=== PATIENT | male | born 1985 ===

== ENCOUNTER 2023-06-12 08:59 | Outpatient (AMB) | payer OTHER, SELFPAY ==
[2023-06-12 09:03] VITALS: BP 130/84; PULSE 83; RESP 12; TEMP 36.3; O2SAT 99; BMI 38.2
--- NOTE | 2023-06-12 09:03 | A.OFFPC_ITS ---
Vital Signs 06/12/23 09:03 Height 5 ft 11 in Weight 274 lb 4 oz BMI 38.2 BP 130/84 Blood Pressure Location Rt brachial Position Sitting Respiration 12 Pulse 83 Pulse Source Pulse Oximeter Temp 97.4 F Temp Source Temporal Artery Scan Pulse Oximetry (%) 99 Oxygen Delivery Method Room Air Intake Visit Reasons: NPV- requesting phy Intake Note: Patient states he is having pain in his left knee that has been going on for more than a year. Patient states that nothing happened to cause the pain. Patient would like a referral for a Dermatology due to whit spots on skin as well as moles. 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 He notes he is not on prescription medications. He reports pain to his left knee only with walking for the past 1 year and a half. He states the pain is persistent with walking. He reports associated intermittent numbness to the left anterior thigh. 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 He notes he hes not take any pain medication. He reports gaining 70 lb in the past year and a half. He states that he generally eats healthy. He requests Dermatology referral for white spots to his neck and moles on his head. He states he was prescribed clotrimazole in the past which treated the white spots. 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 1. Little interest or pleasure in doing things: not at all 2. Feeling down, depressed, or hopeless: not at all 3. Trouble falling or staying asleep, or sleeping too much: not at all 4. Feeling tired or having little energy: not at all 5. Poor appetite or overeating: not at all 6. Feeling bad about yourself - or that you are a failure or have let yourself or your family down: not at all 7. Trouble concentrating on things, such as reading the newspaper or watching television: not at all 8. Moving or speaking so slowly that other people could have noticed. Or the opposite - being so fidgety or restless that you have been moving around a lot more than usual: not at all 9. Thoughts that you would be better off or of hurting yourself in some way: not at all Total score: 0 Depression Screening Interpretation: Negative Source: Developed by Drs. Yonny Coles, Sharee Evans, Fabian Blackwell and colleagues, with an educational maria isabel from [employer]. Thrive Questionnaire Date Thrive assessed: 06/12/23 I am a: Patient What is your living situation today?: I have a steady place to live Within the past 12 months, did the food you bought not last and you didn't have the money to get more?: Never true Within the past 12 months, did you worry whether your food would run out before you got money to buy more?: Never true Do you have trouble paying for medicines?: No Do you have trouble getting transportation to medical appointments?: No Do you have trouble paying your heating and electricity bill?: No Do you have trouble taking care of your child, family member or friend?: No Do you have trouble with day-to-day activities such as bathing, preparing meals, shopping, managing finances, etc.?: No Are you currently unemployed and looking for a job?: No Are you interested in more education?: No Please select the resources that you would like help with: None Currently or been in a relationship where the following occur: no concerns reported AUDIT C Alcohol Use Questionnaire (AUDIT-C) 1. How often do you have a drink containing alcohol?: Never 3. How often do you have six or more drinks on one occasion?: Never Total Score: 0 ELIN-7 AMB Questionnaire ELIN-7 Date ELIN - 7 assessed: 06/12/23 Feeling nervous, anxious, or on edge: 0 = Not at all Not being able to stop or control worryin = Not at all Worrying too much about different things: 0 = Not at all Trouble relaxin = Not at all Being so restless that it is hard to sit still: 0 = Not at all Becoming easily annoyed or irritable: 0 = Not at all Feeling afraid as if something awful might happen: 0 = Not at all Total ELIN-7 score (0-4 normal; 5-9 mild; 10-14 moderate; 15-21 severe): 0 Source: Developed by Drs. Yonny Coles, Sharee Evans, Fabian Blackwell and colleagues, with an educational maria isabel from [employer]. Review of Systems Const Details: Const Denies chills, Denies fatigue, Denies fever(s), Denies headache(s) and Denies weakness ENT Denies dizziness and Denies headache(s) Card Denies chest pain, Denies lightheadedness, Denies dyspnea and Denies other (Palpitations) Resp Denies cough, Denies dyspnea, Denies wheezing and Denies other ( shortness of breath) GI Denies abdominal pain, Denies melena, Denies hematochezia, Denies change in bowel habits, Denies dyspepsia and Denies nausea Denies hematuria and Denies dysuria Musc Reports as per HPI Skin/Breast Reports as per HPI Neuro Denies abnormal gait, Denies dizziness, Denies headache(s), Denies memory loss, Denies numbness, Denies Sensory deficit (Neuro), Denies tingling and Denies weakness Psych Denies anxiety, Denies depression, Denies memory loss Endo Denies cold intolerance, Denies fatigue, Denies heat intolerance, Denies polydipsia and Denies polyuria Aller/Immun Denies wheezing Physical exam (Primary Care) Vital Signs: Last Vital Signs Temp 97.4 F 06/12/23 09:03 Pulse 83 06/12/23 09:03 Resp 12 06/12/23 09:03 BP 130/84 06/12/23 09:03 Pulse Ox 99 06/12/23 09:03 Oxygen Delivery Method Room Air 06/12/23 09:03 BMI result Body Mass Index 38.2 Tobacco/Smoking Status: Tobacco use Status Tobacco use date assessed 06/12/23 06/12/23 09:16 Patient Tobacco Use Status Never used Tobacco 06/12/23 09:16 e-Cigarette/Vaping Use Never Used 06/12/23 09:16 PHQ-9: PHQ-9 Score PHQ-9: Total score 0 06/12/23 09:43 Depression Screening Interpretation: Negative Thrive Assessment: Date of Thrive Assessment Date Thrive assessed 06/12/23 06/12/23 09:16 Currently or been in a relationship where the following occur: no concerns repo rted Const Other: General: no acute distress and well developed Nutritional Appearance: well nourished Orientation/consciousness: patient oriented x3 HENMT Head: Yes normocephalic and Yes atraumatic Eyes General: appearance normal, both eyes and all related structures Pupils: Equal, round and reactive pupils present EOM: EOMs intact bilaterally Resp Effort & Inspection: normal respiratory effort Auscultation: clear to auscultation bilaterally Cardio Rate: regular rate Rhythm: regular rhythm Heart sounds: S1 normal heart sound present, S2 normal heart sound present, no gallops, no murmurs and no rubs GI Palpation (GI): No Abdominal aortic bruit present, Soft to palpation, nontender, No hepatosplenomegaly present and No Rebound tenderness present Auscultation: normal bowel sounds General: Yes no CVA tenderness Back/Spine/Pelvis Back: no CVA tenderness Cervical Spine: cervical ROM normal and No Cervical spine tenderness Thoracic/Lumbar Spine: thoraco-lumbar ROM normal, No pain with thoraco-lumbar ROM, No thoracic spinal tenderness and No lumbar spinal tenderness Extrem General: Yes normal to inspection, No edema and No calf tenderness Tenderness to medial and posterior left knee with active ROM, no erythema, edema, or overt trauma or injury Skin General: warm and dry. Normal skin color. Normal skin turgor Lesions: Few moles to the scalp Rashes: Hypopigmentation of the skin on the posterior neck and upper back, consistent with tinea versicolor Trauma: no lacerations or abrasions Wounds: no wounds Nails: normal Neuro General: patient oriented x3, gait normal and no focal neuro deficit Cranial nerves: Yes Equal, round and reactive pupils present Cognition (Neuro): normal cognition Gait exam (Neuro): Normal gait present Sensory Exam: No Sensory deficit (Neuro) Psych Appearance: grossly normal Affect: normal affect Attitude: cooperative Thought process: Normal thought process present Assessment and Plan Assessment & Plan (1) Chronic pain of left knee: Code(s): M25.562 - Pain in left knee; G89.29 - Other chronic pain Plan: Tenderness to medial and posterior left knee with active ROM, no erythema, edema, or overt trauma or injury X-ray ordered Naproxen ordered. Take as prescribed Warm/cool compresses encouraged Weight may be a contributing factor Weight management, including exercise and healthy diet choices encouraged Referred to weapons officer/dietitian Return with worsening or new symptoms Verbalized understanding and agreed with treatment plan. (2) Obesity (BMI 30-39.9): Code(s): E66.9 - Obesity, unspecified Plan: Reports gaining 70 lb in the past year and a half He weighs 274 lb, BMI is 38.2 Healthy diet and routine exercise encouraged Referred to weapons officer/dietitian Informed that his current weight may be a contributing factor to his left knee pain Verbalized understanding and agreed with treatment plan. (3) Tinea versicolor: Code(s): B36.0 - Pityriasis versicolor Plan: Hypopigmentation of the skin on the posterior neck and upper back, consistent with tinea versicolor Terbinafine cream as prescribed Referred to dermatology Follow-up with worsening or new signs and symptoms Verbalized understanding and agreed with treatment plan. (4) Numerous moles: Code(s): D22.9 - Melanocytic nevi, unspecified Plan: Few moles to the scalp Referred to dermatology for evaluation (5) Impacted cerumen of both ears: Code(s): H61.23 - Impacted cerumen, bilateral Plan: Impacted cerumen of both ear canal occluding the TMs May return for cerumen removal with ear pain or impaired hearing Verbalized understanding and agreed with the plan. (6) Laboratory tests ordered as part of a complete physical exam (CPE): Code(s): Z00.00 - Encounter for general adult medical examination without abnormal findings Plan: Fasting labs ordered as part of a complete physical exam. Advised to fast for at least 10 hours before getting labs drawn. May drink water Verbalized understanding and agreed with treatment plan. Orders: Orders Complete Blood Count Auto Diff Today Z00.00 - Encounter for general adult medical examination without abnormal findings Comprehensive [place]. Panel Fast Today Z00.00 - Encounter for general adult medical examination without abnormal findings TSH reflex Free T4 Today Z00.00 - Encounter for general adult medical examination without abnormal findings UA CC w/rflx Micro + Cult Today Z00.00 - Encounter for general adult medical examination without abnormal findings XR knee LT 2V Today G89.29 - Other chronic pain, M25.562 - Pain in left knee Lipid Panel Today Z00.00 - Encounter for general adult medical examination without abnormal findings Referrals Program Schedule Clerk Nutrition Referral E66.9 - Obesity, unspecified Dermatology Referral B36.0 - Pityriasis versicolor, D22.9 - Melanocytic nevi, unspecified Medications: New terbinafine HCl 1% 1 appl topical BID 15 grams 0RF 7 days naproxen 500 mg PO BID PRN 60 tabs 1RF pain Coding Level of Care Code New Pt Level 3 (34025) Diagnoses Chronic pain of left knee M25.562; G89.29 Obesity (BMI 30-39.9) E66.9 Tinea versicolor B36.0 Numerous moles D22.9 Impacted cerumen of both ears H61.23 Laboratory tests ordered as part of a complete physical exam (CPE) Z00.00
== END 2023-06-12 09:53 | disposition home or self-care (01) ==
PROVIDERS: PCP Hospitalist; Visit Provider Nurse Practitioner Family
DX: M25.562 Pain in left knee (principal); E66.9 Obesity, unspecified; B36.0 Pityriasis versicolor; Z68.38 Body mass index [BMI] 38.0-38.9, adult; D22.9 Melanocytic nevi, unspecified; H61.23 Impacted cerumen, bilateral
CPT/HCPCS: 99203

== ENCOUNTER 2023-06-21 08:18 | Outpatient (AMB) | payer OTHER, SELFPAY ==
--- NOTE | 2023-06-21 08:27 | A.OFFVIS_ITS ---
Intake VS Expanded 06/21/23 08:29 06/26/23 12:20 Height 5 ft 11 in 5 ft 11 in Weight 272 lb 14.916 oz 273 lb BMI 38.1 38.1 Intake Visit Reasons: Obesity, confirm Allergies No Known Allergies Allergy (Verified 06/12/23 09:30) HPI Nutrition Presentation Details Pt presents for MNT for obesity. The Pt was referred by Rosa Elena Azevedo. Pt reports typical wt 280 lbs PT reports in 2019 he reached 190 lbs ( via exercise and strict diet) beverages : coke (pepsi/coke) 8-9 pm B: Gas station bagel/cheese, cok e or te , lots of coffee and milk no sugar /2 , 1/2 Pt reports eating from 8-12 pm , and nothing else the rest of the day Reports eating chocolates exercise: currently not participating ETOH occ smoking denies PTM-Cxzzuvi-Qv.Jeor Equation Height 5 ft 11 in Weight 273 lb Resting Metabolic Rate 2182.23 Calculated Activity Level Sedentary Calories Needed to Maintain Weight 2618.68 Diagnosis Nutrition problem #1 excessive energy intake As related to (etiology) #1 diagnosis As evidenced by (sign/symptom) #1 high BMI (38.1 (06/26/23)) Monitoring/Goals Nutrition problem monitoring total PRO intake, total CHO intake, weight and oral fluids Learning/Education Readiness to learn fair Stages of change contemplation Educational materials provided Yes (meal planning) Most Recent Diabetes Results: No Data to Display [facility] Medical History (Updated 06/12/23 @ 10:02 by Alyx Hernandez CNP) No pertinent family history No pertinent past medical history Surgical History (Updated 06/12/23 @ 09:14 by Brittney Bingham MA) No pertinent past surgical history Social History Housing: House Patient Tobacco Use Status: Never used Tobacco e-Cigarette/Vaping Use: Never Used service: No Current occupational status: employed 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 Cognitive needs: No Hearing needs: No Vision needs: No Assessment & Plan Assessment & Plan (1) Obesity (BMI 30-39.9): Code(s): E66.9 - Obesity, unspecified Plan: wt: 124 kg Est kcal needs as per MSJ: 2600 (40% carb, 30% protein/fat) Est fluid needs as per 30 ml/d: 3700 Est prot per day as per 1 g/kg bw: 124 Recommend fiber intake : 8-10 g per day and gradually increase to 25-28 g per day for women and 35-38 g for men or as tolerated Recommend sodium intake per day : less than 2000 mg Educated patient on: ( R = reviewed V = verbalizes understanding N/R = needs review N/A = not applicable * Food sources of carbohydrate, adequate serving sizes and its role in various health conditions: R * Differences between complex carbohydrates a simple carbohydrates, role of fiber in diet: R * Differences between types of fats and role in diet (mono on saturated fat fatty acids, saturated fatty acids, trans fats): R basic * Food sources of sodium in salt and healthy modifications for heart health in kidney health: R * REading food labels: R * Healthy plate method concept: R V * Physical activity: Benefits a precaution: R * Patient Instructions: Work on gradual weight loss , work on reducing 500 calories per day from empty calorie foods : example : have af fruit (60 kira) vs pastries (100+ per serving) , reduce on portion sizes of empty calorie foods, choose lower fat food options Practice mindful eating see meal ideas printed as reference Coding Level of Care Code Nutr Indiv Intake (07330) Diagnoses Obesity (BMI 30-39.9) E66.9 Time Spent (min) 30
[2023-06-21 08:29] VITALS: BMI 38.1
[2023-06-26 12:20] VITALS: BMI 38.1
== END 2023-06-21 09:25 | disposition home or self-care (01) ==
PROVIDERS: PCP Hospitalist; Visit Provider Dietitian, Registered
DX: E66.9 Obesity, unspecified (principal)

== ENCOUNTER → 2023-06-21 08:18 | Outpatient (BNVA) | payer OTHER, SELFPAY | PROVIDERS: PCP Hospitalist; Visit Provider Dietitian, Registered | DX: E66.9 Obesity, unspecified (principal); Z68.38 Body mass index [BMI] 38.0-38.9, adult | CPT/HCPCS: 97802 ==

== ENCOUNTER 2023-07-05 08:15 | Outpatient (REF) | payer OTHER, SELFPAY ==
[2023-07-05 11:13] LABS: MANUAL DIFF FLAG NO
[2023-07-05 11:24] LABS: Appearance Urine Turbid; Color Urine Yellow; Glucose Urine UA Negative (Negative); Leukocyte Esterase Urine Negative (Negative); Nitrite Urine Negative (Negative); PH 5.5 (5.0-9.0); Specific Gravity - Urine 1.025 (1.005-1.025); Urine Blood Negative (Negative); Urine Ketones Negative (Negative); Urine Protein Negative (Neg-Trace)
[2023-07-05 11:31] LABS: Basophils Absolute Auto 0.1 X10*3/uL (0.0-0.2); Basophils Percent Auto 0.7 % (0-2); Eosinophils Absolute Auto 0.1 X10*3/uL (0.0-0.4); Hematocrit 43.8 % (42.0-52.0); Hemoglobin 14.8 g/dl (14.0-18.0); Imm Gran Abs Auto 0.03 X10*3/uL (0.00-0.03); Imm Gran Pct Auto 0.4 % (0.0-0.4); Lymphocytes Absolute Auto 2.5 X10*3/uL (1.2-4.9); Lymphocytes Percent Auto 36.1 % (20-40); Mean Corpuscular HGB Conc 33.8 g/dl (31.0-36.0); Mean Corpuscular Hemoglobin 29.4 pg (27.0-33.0); Mean Corpuscular Volume 86.9 fL (80.0-98.0); Mean Platelet Volume 9.5 fL (9.4-12.4); Monocytes Absolute Auto 0.4 X10*3/uL (0.1-1.2); Monocytes Percent Auto 5.5 % (2-11); Neutrophils Absolute Auto 3.8 x10*3/uL (2.0-8.3); Neutrophils Percent Auto 55.3 % (45-73); Platelet Count 290 X10*3/uL (160-400); Red Blood Count 5.04 X10*6/uL (4.60-5.80); Red Cell Distribution Width 13.3 % (11.0-16.0); White Blood Count 6.9 X10*3/uL (4.8-10.8)
[2023-07-05 12:10] LABS: Alanine Aminotransferase 66 U/L (0-40); Albumin Level 4.8 g/dL (3.5-5.0); Alkaline Phosphatase 52 U/L (39-117); Anion Gap 14 (12-20); Aspartate Amino Transferase 40 U/L (5-37); Blood Urea Nitrogen 14 mg/dL (9-16); Calcium 10.1 mg/dL (8.4-10.2); Carbon Dioxide 23 mmol/L (22-29); Chloride 105 mmol/L (96-108); Cholesterol 175 mg/dL (<200); Estimated Glomerular Filt Rate > 60; Glucose Fasting 91 mg/dL (60-99); HDL Cholesterol 47 mg/dL (>40); LDL Cholesterol Calculated 111 mg/dL (<100); Potassium 4.1 mmol/L (3.3-5.1); Sodium 138 mmol/L (135-145); Total Protein 8.1 g/dL (6.5-8.0); Triglycerides 85 mg/dL (<150)
== END 2023-07-05 08:16 | disposition home or self-care (01) ==
LOC: HO.WFDLDS 08:15
PROVIDERS: Visit Provider Nurse Practitioner Family
DX: Z00.00 Encounter for general adult medical examination without abnormal findings (principal)
CPT/HCPCS: 36415; 80053; 80061; 81003; 84443; 85025

== ENCOUNTER 2023-07-10 08:22 | Outpatient (AMB) | payer OTHER, SELFPAY ==
[2023-07-10 08:28] VITALS: BP 126/78; PULSE 87; RESP 13; TEMP 36.5; O2SAT 99; BMI 38.1
--- NOTE | 2023-07-10 08:28 | MHC.PC.OV ---
Vital Signs 07/10/23 08:28 Height 5 ft 11 in Weight 273 lb BMI 38.1 BP 126/78 Blood Pressure Location Lt brachial Position Sitting Respiration 13 Pulse 87 Pulse Source Pulse Oximeter Temp 97.7 F Temp Source Temporal Artery Scan Pulse Oximetry (%) 99 Oxygen Delivery Method Room Air Intake Visit Reasons: CPE Intake Note: Patient states he did not receive any of the scripts from last month. Process Pumper Required: No Accompanied by: Self / Same As Patient Allergies No Known Allergies Allergy (Verified 07/10/23 08:41) Medication List - Last Reconciled 07/10/23 by Alyx Hernandez CNP naproxen 500 mg PO BID PRN terbinafine HCl 1% 1 appl topical BID 7 days Tobacco use date assessed: 06/12/23 Dental Screening Dental Screen Date: 07/10/23 Did you have a dental visit in the last 12 months?: Yes Did you have a dental problem in the last 6 months where you did not have access to dental care?: No Was dental information given to patient?: Patient has dentist HPI HPI Comments History of Present Illness Details 37-year-old male presents for complete physical exam He has no significant past medical history. He established care almost a month ago. Routine labs were ordered. Terbinafine was ordered for tinea versicolor of the posterior neck and upper back and Naproxen prescribed for chronic left knee pain. X-ray was also ordered for the left knee. He was also referred to nutrition/dietitian for obesity and Dermatology for tinea versicolor. He notes that he did not received the medications that were prescribed last month. He also has not gotten x-ray for his left knee done. He established care with nutrition/dietitian and has a follow up next month. He notes that his health plan does not cover the vacuum furnace operator he was referred to. He states that he will provide in-network dermatologists for a new referral. He notes that a week ago, he bent down on his knees while doing some work, he heard a cracking sound in the left knee upon standing up, since then, he has not felt pain in the knee. He denies acute symptoms at this time. 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 Yonny Coles, Sharee Evans, Fabian Blackwell and colleagues, with an educational maria isabel from [employer]. Review of Systems Const Details: Denies chills, Denies fatigue, Denies fever(s), Denies headache(s) and Denies weakness HEENT Denies change in vision, Denies dizziness, Denies headache(s), Denies hearing loss, Denies nasal congestion, Denies sinus pain, Denies sinus pressure and Denies sore throat Card Denies chest pain, Denies lightheadedness, Denies dyspnea and Denies other (palpitations) Resp Denies cough, Denies dyspnea and Denies wheezing GI Denies abdominal pain, Denies melena, Denies hematochezia, Denies change in bowel habits, Denies dyspepsia and Denies nausea Denies hematuria and Denies dysuria Musc Denies abnormal gait, Denies myalgias, Denies arthralgias, Denies numbness and Denies tingling Skin/Breast Reports hypopigmented rash to his back and neck, Denies unusual bruising and Denies wounds Neuro Denies abnormal gait, Denies dizziness, Denies headache(s), Denies memory loss, Denies numbness, Denies Sensory deficit (Neuro), Denies tingling and Denies weakness Psych Denies anxiety, Denies depression and Denies memory loss Endo Denies cold intolerance, Denies fatigue, Denies heat intolerance, Denies polydipsia and Denies polyuria Sonny/Lymph Denies easy bleeding and Denies easy bruising Aller/Immun Denies wheezing Physical exam (Primary Care) Vital Signs: Last Vital Signs Temp 97.7 F 07/10/23 08:28 Pulse 87 07/10/23 08:28 Resp 13 07/10/23 08:28 BP 126/78 07/10/23 08:28 Pulse Ox 99 07/10/23 08:28 Oxygen Delivery Method Room Air 07/10/23 08:28 BMI result Body Mass Index 38.1 Tobacco/Smoking Status: Tobacco use Status Tobacco use date assessed 06/12/23 07/10/23 08:37 Patient Tobacco Use Status Never used Tobacco 07/10/23 08:37 e-Cigarette/Vaping Use Never Used 07/10/23 08:37 Thrive Assessment: Date of Thrive Assessment Date Thrive assessed 06/12/23 07/10/23 08:37 Const Other: General: no acute distress, well developed, alert and awake Nutritional Appearance: well nourished Orientation/consciousness: patient oriented x3 HENMT Head: Yes normocephalic and Yes atraumatic Ears: hearing grossly normal bilaterally and impacted cerumen bilaterally occluding the TMs General nose exam: Normal external nose present and Normal nares present Mouth: Normal oral and palatal mucosa present and moist mucous membranes Teeth and gingiva: dentition normal Throat: Yes oropharynx normal Eyes Pupils: Equal, round and reactive pupils present and Pupil accommodation reflex normal EOM: EOMs intact bilaterally Neck Neck: Yes normal visual inspection, Yes no lymphadenopathy and Yes trachea midline Thyroid: Thyroid normal Carotids: no bruits Lymphatic: no lymphadenopathy noted Chest Chest palpation & inspection: normal inspection of the chest Resp Effort & Inspection: normal respiratory effort Auscultation: clear to auscultation bilaterally Cardio Rate: regular rate Rhythm: regular rhythm Heart sounds: S1 normal heart sound present, S2 normal heart sound present, no gallops, no murmurs and no rubs Bruits: no abdominal aortic bruits and no carotid bruits GI Palpation (GI): No Abdominal aortic bruit present, Soft to palpation, nontender, No hepatosplenomegaly present and No Rebound tenderness present Auscultation: normal bowel sounds General: Yes no CVA tenderness Back/Spine/Pelvis Back: no CVA tenderness Cervical Spine: cervical ROM normal and No Cervical spine tenderness Thoracic/Lumbar Spine: thoraco-lumbar ROM normal, No pain with thoraco-lumbar ROM, No thoracic spinal tenderness and No lumbar spinal tenderness Skin General: warm and dry. Normal skin color. Normal skin turgor Lesions: Few moles to scalp Rashes: Hypopigmentation of the skin on the posterior neck and upper back, consistent with tinea versicolor Trauma: no lacerations or abrasions Wounds: no wounds Nails: normal Neuro General: patient oriented x3, gait normal and CN's II-XI intact bilaterally Cranial nerves: Yes Equal, round and reactive pupils present Cognition (Neuro): normal cognition Gait exam (Neuro): Normal gait present Motor exam (neuro): 5/5 motor strength present throughout Sensory Exam: No Sensory deficit (Neuro) Deep tendon reflexes (DTR's): Right patellar reflex intensity grade: 2+ and Left patellar reflex intensity grade: 2+ Extrem General: Yes normal to inspection, No edema and No calf tenderness Psych Appearance: grossly normal Affect: normal affect Attitude: cooperative Thought process: Normal thought process present Assessment and Plan Assessment & Plan (1) Normal physical examination, routine: Code(s): Z00.00 - Encounter for general adult medical examination without abnormal findings Plan: No significant physical restrictions or limitations noted Advised to get fasting liver panel blood work done and schedule a telehealth visit for labs review Return with symptoms or concerns Verbalized understanding and agreed with treatment plan (2) Transaminitis: Code(s): R74.01 - Elevation of levels of liver transaminase levels Plan: Recent lab results reviewed with the patient AST and ALT elevated Likely hepatic steatosis Will repeat liver panel. Advised to fast for 10-12 hours and get blood work done Follow-up for a telehealth visit for labs review Verbalized understanding and agreed with treatment plan. (3) High serum low density lipoprotein (LDL) cholesterol: Code(s): R79.89 - Other specified abnormal findings of blood chemistry Plan: LDL was slightly elevated, 111 Advised to limit foods high in saturated fat and avoid foods high trans fat Routine exercise encouraged Continue follow-up with global lead/dietitian Verbalized understanding and agreed with treatment plan. (4) Obesity (BMI 30-39.9): Code(s): E66.9 - Obesity, unspecified Plan: Current BMI is 38.1 He was referred to nutrition/dietitian and has established care. He has a follow-up next month Encouraged to continue follow-up with nutrition/dietitian Return with symptoms or concerns Verbalized understanding and agreed with treatment plan. (5) Impacted cerumen of both ears: Code(s): H61.23 - Impacted cerumen, bilateral Plan: Impacted cerumen of both ear canal occluding the TMs May return for cerumen removal with ear pain or impaired hearing Verbalized understanding and agreed with the plan. (6) Tinea versicolor: Code(s): B36.0 - Pityriasis versicolor Plan: Hypopigmentation of the skin on the posterior neck and upper back, consistent with tinea versicolor The MA called the pharmacy and was informed the patient health plan does not cover terbinafine and the patient never picked up naproxen, therefore, it was return to stock Terbinafine discontinued Ketoconazole ordered. Advised to use as prescribed His health plan does not covered the vacuum furnace operator he was initially referred to. He notes he will provide names of dermatologists that are in his health plan at work. Will refer to one of those dermatologists once provided Return with worsening or new signs and symptoms Verbalized understanding and agreed with treatment plan. (7) Numerous moles: Code(s): D22.9 - Melanocytic nevi, unspecified Plan: Few moles to scalp His health plan does not covered the vacuum furnace operator he was initially referred to. He notes he will provide names of dermatologists that are in his health plan at work. Will refer to one of those dermatologists once provided. Orders: Orders Liver Panel Today R74.01 - Elevation of levels of liver transaminase levels Medications: New ketoconazole 2% 1 appl topical BID 30 grams 0RF Discontinued terbinafine HCl 1% Discontinued Reason: Doctor's Order 1 appl topical BID 7 days 15 grams 0RF Coding Level of Care Code Est Pt Prev Care 18-39y(62913) Diagnoses Normal physical examination, routine Z00.00 Transaminitis R74.01 High serum low density lipoprotein (LDL) cholesterol R79.89 Obesity (BMI 30-39.9) E66.9 Impacted cerumen of both ears H61.23 Tinea versicolor B36.0 Numerous moles D22.9
== END 2023-07-10 09:03 | disposition home or self-care (01) ==
PROVIDERS: PCP Hospitalist; Visit Provider Nurse Practitioner Family
DX: Z00.00 Encounter for general adult medical examination without abnormal findings (principal); R74.01 Elevation of levels of liver transaminase levels; R79.89 Other specified abnormal findings of blood chemistry; H61.23 Impacted cerumen, bilateral; B36.0 Pityriasis versicolor; E66.9 Obesity, unspecified; Z68.38 Body mass index [BMI] 38.0-38.9, adult; D22.9 Melanocytic nevi, unspecified
CPT/HCPCS: 99395

== ENCOUNTER 2023-07-17 | Outpatient (REF) | payer OTHER, SELFPAY ==
[2023-07-17 11:57] LABS: Alanine Aminotransferase 48 U/L (0-40); Albumin Level 4.5 g/dL (3.5-5.0); Alkaline Phosphatase 51 U/L (39-117); Aspartate Amino Transferase 27 U/L (5-37); Bilirubin Direct 0.3 mg/dL (0.0-0.5); Bilirubin Total 0.7 mg/dL (0.0-1.0); Total Protein 7.7 g/dL (6.5-8.0)
== END 2023-07-17 00:01 | disposition home or self-care (01) ==
LOC: HO.WFDLDS
PROVIDERS: Visit Provider Nurse Practitioner Family
DX: R74.01 Elevation of levels of liver transaminase levels (principal)
CPT/HCPCS: 36415; 80076

== ENCOUNTER 2023-07-27 10:18 | Outpatient (AMB) | payer OTHER, SELFPAY ==
--- NOTE | 2023-07-27 10:15 | MHC.PC.OV ---
Intake Visit Reasons: labs review transaminitis Business Systems Analyst Required: No Allergies No Known Allergies Allergy (Verified 07/27/23 10:16) Tobacco use date assessed: 06/12/23 HPI HPI Comments History of Present Illness Details This is a telephonic telehealth visit for review of recent blood work. Patient had routine blood work done on 07/05/2023. AST and ALT were elevated, 40 and 66 respectively. Liver panel was repeated. ALT reduced to 48, slightly elevated, AST was normal. She offers no complaints and denies acute symptoms. 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 Yonny Coles, Sharee Evans, Fabian Blackwell and colleagues, with an educational maria isabel from [employer]. Review of Systems Const Details: Const Denies chills, Denies fatigue, Denies fever(s), Denies headache(s) and Denies weakness ENT Denies dizziness and Denies headache(s) Card Denies chest pain, Denies lightheadedness, Denies dyspnea and Denies other (Palpitations) Resp Denies cough, Denies dyspnea, Denies wheezing and Denies other ( shortness of breath) GI Denies abdominal pain, Denies melena, Denies hematochezia, Denies change in bowel habits, Denies dyspepsia and Denies nausea Denies hematuria and Denies dysuria Musc Denies abnormal gait, Denies myalgias, Denies arthralgias, Denies numbness and Denies tingling Skin/Breast Denies rash, Denies unusual bruising and Denies wounds Neuro Denies abnormal gait, Denies dizziness, Denies headache(s), Denies memory loss, Denies numbness, Denies Sensory deficit (Neuro), Denies tingling and Denies weakness Psych Denies anxiety, Denies depression, Denies memory loss Endo Denies cold intolerance, Denies fatigue, Denies heat intolerance, Denies polydipsia and Denies polyuria Aller/Immun Denies wheezing Physical exam (Primary Care) Tobacco/Smoking Status: Tobacco use Status Tobacco use date assessed 06/12/23 07/27/23 10:16 Patient Tobacco Use Status Never used Tobacco 07/27/23 10:16 e-Cigarette/Vaping Use Never Used 07/27/23 10:16 Thrive Assessment: Date of Thrive Assessment Date Thrive assessed 06/12/23 07/27/23 10:16 Const Other: Telemedicine visit. No physical exam Telehealth Telehealth Location of provider rendering services: practice address Location of patient: address on file Patient Identification confirmed using: Name, : Yes Telehealth method: voice only Patient verbally consented to treatment: Yes Patient verbally consented to billing insurance company: Yes Patient informed of any privacy concerns related to visit: Yes Assessment and Plan Assessment & Plan (1) Transaminitis: Code(s): R74.01 - Elevation of levels of liver transaminase levels Plan: Patient had routine blood work done on 07/05/2023. AST and ALT were elevated, 40 and 66 respectively. Liver panel was repeated. ALT reduced to 48, slightly elevated, AST was normal. He denies drinking alcohol. No acute symptoms Likely hepatic steatosis Liver ultrasound ordered. Will review results and make changes to his care plan as needed Advised to schedule his next complete physical exam for next year Return with symptoms or concerns Verbalized understanding and agreed with treatment plan. Orders: Orders US abdomen limited Today R74.01 - Elevation of levels of liver transaminase levels Coding Level of Care Code Tele Est Pt Level 2 (29881) Diagnoses Transaminitis R74.01 Time Spent (min) 15
== END 2023-07-27 10:45 | disposition home or self-care (01) ==
LOC: HO.HMGFM 10:18
PROVIDERS: PCP Nurse Practitioner Family; Visit Provider Nurse Practitioner Family
DX: R74.01 Elevation of levels of liver transaminase levels (principal)
CPT/HCPCS: 99212

== ENCOUNTER 2023-08-29 08:31 | Outpatient (REF) | payer OTHER, SELFPAY ==
--- NOTE | ~2023-08-29 | US_ITS ---
EXAMINATION: US ABDOMEN LIMITED CLINICAL INFORMATION: Elevation of levels of liver transaminase levels. COMPARISON: None available. TECHNIQUE: Real-time imaging of the right upper quadrant abdominal viscera. Technically limited study secondary to overlying bowel gas. FINDINGS: PANCREAS: Not seen. LIVER: The liver contour is normal. There is diffuse increased liver parenchymal echogenicity, consistent with hepatic steatosis. No focal hepatic lesion. There is no intrahepatic biliary duct dilatation seen. GALLBLADDER: The gallbladder is physiologically distended without evidence of stones, sludge, polyps, wall thickening or pericholecystic fluid. COMMON BILE DUCT: Normal in caliber measuring 0.3 cm in diameter. RIGHT KIDNEY: No hydronephrosis. No renal calculi or focal parenchymal lesions. The kidney measures 12.3 cm in maximum dimension. FREE FLUID: None. US/US abdomen limited IMPRESSION: Hepatic steatosis.
== END 2023-08-29 08:32 | disposition home or self-care (01) ==
LOC: HO.US 08:31
PROVIDERS: PCP Nurse Practitioner Family; Visit Provider Nurse Practitioner Family
DX: R74.01 Elevation of levels of liver transaminase levels (principal)
CPT/HCPCS: 76705